=== PATIENT | female | born 1980 | race Caucasian/White ===

== ENCOUNTER 2021-06-01 11:26 | Emergency (ER) | payer MEDICAID ==
[2021-06-01] MEDS ORDERED: WELLBUTRIN XL300 M1 PO (12:03)
[2021-06-01] MEDS ORDERED: ESCITALOPRAM20 MG PO (12:03)
[2021-06-01 13:40] VITALS: BP 115/103
== END 2021-06-01 13:36 | disposition home or self-care (01) ==
LOC: ED 11:26
DX: S90.32XA Contusion of left foot, initial encounter (principal); R05 Cough; F32.9 Major depressive disorder, single episode, unspecified; Z79.899 Other long term (current) drug therapy; Z20.822 Contact with and (suspected) exposure to COVID-19; X50.0XXA Overexertion from strenuous movement or load, initial encounter; Y93.01 Activity, walking, marching and hiking

== ENCOUNTER 2021-09-05 09:03 | Emergency (ER) | payer MEDICAID ==
[~2021-09-05] VITALS: Ht 162.6 cm; Wt 107.6 kg
[~2021-09-05 09:03] MED LIST: ESCITALOPRAM20 MG PO; WELLBUTRIN XL300 M1 PO
[2021-09-05] MEDS ORDERED: TRAMADOL 50 MG TAB PO (09:17)
[2021-09-05] MEDS ORDERED: BENADRYL PO (09:18)
[2021-09-05 10:18] LABS: BASO # 0.03 K/mm3 (0.02-0.10); EOS # 0.01 K/mm3 (0.04-0.40); EOS % 0.1 % (1.0-5.0); HEMOGLOBIN 14.6 g/dL (12.5-16.0); LYMPH# 1.36 K/mm3 (1.50-4.00); MEAN CELL VOLUME 86 fl (78-100); MEAN CORPUSCULAR HEMOGLOBIN 29 pg (27-31); MEAN CORPUSCULAR HGB CONC 34 g/dL (33-37); MEAN PLATELET VOLUME 10.4 fl (7.4-10.4); MONO # 1.27 K/mm3 (0.20-0.80); NEU # 12.35 K/mm3 (1.40-6.50); PLATELET COUNT 261 K/mm3 (130-400); RED CELL DISTRIBUTION WIDTH 12.3 % (11.5-14.5); WHITE BLOOD COUNT 15.1 K/mm3 (4.8-10.8)
[2021-09-05 10:46] LABS: ALBUMIN 3.5 g/dL (3.5-5.0); CALCIUM 8.5 mg/dL (8.3-10.5); POTASSIUM 3.7 mmol/L (3.5-5.1); TOTAL BILIRUBIN 0.3 mg/dL (0.2-1.2); TOTAL PROTEIN 7.1 g/dL (6.4-8.3)
[2021-09-05] MEDS ORDERED: KETOROLAC10 MG PO ×2 (11:32)
[2021-09-05] MEDS ORDERED: TIZANIDINE HYDRO4 MG PO ×2 (11:32)
[2021-09-05] MEDS ORDERED: FIORICET 325 MG1 TAB PO (12:28)
[2021-09-05 13:00] VITALS: BP 137/73
== END 2021-09-05 13:01 | disposition home or self-care (01) ==
LOC: ED 09:03
PROVIDERS: Family Medicine
DX: G97.1 Other reaction to spinal and lumbar puncture (principal); F41.9 Anxiety disorder, unspecified; F32.A Depression, unspecified; G43.909 Migraine, unspecified, not intractable, without status migrainosus; Z98.890 Other specified postprocedural states; Z79.899 Other long term (current) drug therapy
CPT/HCPCS: J7030

== ENCOUNTER 2022-06-15 04:20 | Emergency (ER) | payer MEDICAID ==
[~2022-06-15] VITALS: Ht 162.6 cm; Wt 100.0 kg
[~2022-06-15 04:20] MED LIST changes: +BENADRYL PO; +FIORICET 325 MG1 TAB PO; +KETOROLAC10 MG PO; +TIZANIDINE HYDRO4 MG PO; +TRAMADOL 50 MG TAB PO
[2022-06-15 04:23] VITALS: BP 125/88
[2022-06-15] MEDS ORDERED: PAXIL30 M2 PO (04:28)
[2022-06-15] MEDS ORDERED: HYDROXYZINE HYD50 M1 PO (04:28)
[2022-06-15] MEDS ORDERED: PROMETH-CODEIN 65 ML PO (04:34)
[2022-06-15] MEDS ORDERED: RAMELTEON8 MG PO (04:35)
[2022-06-15] MEDS ORDERED: NIKKI1 TAB PO (04:36)
[2022-06-15] MEDS ORDERED: ADDERALL XR30 MG PO (04:36)
[2022-06-15] MEDS ORDERED: QUETIAPINE FUMA25 M3 PO (04:36)
== END 2022-06-15 05:10 | disposition home or self-care (01) ==
LOC: ED 04:20
DX: U07.1 COVID-19 (principal); R10.9 Unspecified abdominal pain; Z28.310 Unvaccinated for COVID-19

== ENCOUNTER 2023-07-02 07:10 | Emergency (ER) | payer MEDICAID ==
[~2023-07-02] VITALS: Ht 160 cm; Wt 104.5 kg
[~2023-07-02 07:10] MED LIST changes: +ADDERALL XR30 MG PO; +HYDROXYZINE HYD50 M1 PO; +NIKKI1 TAB PO; +PAXIL30 M2 PO; +PROMETH-CODEIN 65 ML PO; +QUETIAPINE FUMA25 M3 PO; +RAMELTEON8 MG PO
[2023-07-02] MEDS ORDERED: PROAIR HFA0.09 MG/AC IH (07:27)
[2023-07-02 09:43] VITALS: BP 119/89
== END 2023-07-02 09:40 | disposition home or self-care (01) ==
LOC: ED 07:10
DX: J45.909 Unspecified asthma, uncomplicated (principal); Z28.310 Unvaccinated for COVID-19
CPT/HCPCS: J1885

== ENCOUNTER → 2024-01-25 | Outpatient (CLI) | payer OTHER ==
[~2024-01-25] MED LIST changes: +PROAIR HFA0.09 MG/AC IH
== END ==
LOC: RAD 09:49
DX: M25.561 Pain in right knee (principal)

== ENCOUNTER 2024-03-23 05:02 | Inpatient (IN) | payer OTHER ==
[2024-03-23] MEDS ORDERED: Ondansetron 4 MG/2 ML VIAL IV ONE (13:38)
[2024-03-23] MEDS ORDERED: Morphine 4 MG/ML VIAL IV ONE (13:38)
[2024-03-23] MEDS ORDERED: fentaNYL 100 MCG/2 ML VIAL IV ONE (13:38)
[2024-03-23] MEDS ORDERED: NS 1,000 ML IV ONE (13:38)
[2024-03-23] MEDS ORDERED: Vancomycin 1 G in NS 250 ML IV ONE (13:38)
== END 2024-03-26 11:43 | disposition home or self-care (01) | DRG 601 ==
LOC: ED 05:02 → MED/SURG 09:39 → ED 04-26 17:22 → EDSTATUS 04-26 17:22
PROVIDERS: ADMIT Physician Assistant
DX: N61.0 Mastitis without abscess (principal)
CPT/HCPCS: J2270; J2405; J3010; J3370; J7030; J7050

== ENCOUNTER 2024-10-10 15:06 | Emergency (ER) | payer OTHER ==
[~2024-10-10] VITALS: Ht 162.6 cm; Wt 104.5 kg
[2024-10-10 15:12] VITALS: BP 132/84
[2024-10-10] MEDS ORDERED: PAROXETINE HYDR30 MG PO (15:17)
[2024-10-10] MEDS ORDERED: BENZONATATE100 M2 PO (15:50)
[2024-10-10] MEDS ORDERED: PAXLOVID 300-11 EACH PO (15:50)
== END 2024-10-10 16:00 | disposition home or self-care (01) ==
LOC: ED 15:06
DX: U07.1 COVID-19 (principal); R50.9 Fever, unspecified; J02.9 Acute pharyngitis, unspecified; R09.81 Nasal congestion; R43.9 Unspecified disturbances of smell and taste; R52 Pain, unspecified